=== PATIENT | female | born 2000 | race Caucasian/White ===

== ENCOUNTER → 2020-11-03 00:29 | Outpatient (CLI) | payer BC, SELFPAY ==
[2020-11-03 18:19] LABS: SARS-CoV-2 RNA PCR Negative
== END ==
PROVIDERS: PCP Family Medicine; Visit Provider Internal Medicine Gastroenterology
DX: Z01.812 Encounter for preprocedural laboratory examination (principal); Z20.822 Contact with and (suspected) exposure to COVID-19
CPT/HCPCS: C9803; U0003; U0005

== ENCOUNTER 2020-11-06 01:12 | Day surgery (SDC) | payer BC, SELFPAY ==
[2020-10-26 13:21] VITALS: BMI 45.3
[2020-11-06 10:50] VITALS: BP 145/100; PULSE 94; RESP 18; TEMP 36.4; O2SAT 100
[2020-11-06] MEDS: LACTATED RINGERS 1,000 ML 150 ML IV CONT (11:13)
--- NOTE | 2020-11-06 11:34 | WPDANESEPPF ---
Anes - Initial Pre Proc Eval Procedure: Operation Date: 11/06/20 12:00 Proposed Procedures p Esophagogastroduodenoscopy - Mario Duke MD Date/Time: 11/06/20 11:34 Surgeon: Mario Duke MD Pre Op Diagnosis: Epigastric Pain, GERD Patient Data Age: 20 Gender: F Height: 5 ft 4 in Weight: 122.3 kg Last Vital Signs Temp 36.4 C L 11/06/20 10:50 Pulse 94 11/06/20 10:50 Resp 18 11/06/20 10:50 BP 145/100 H 11/06/20 10:50 Pulse Ox 100 11/06/20 10:50 Allergies Allergy/AdvReac Type Severity Reaction Status Date / Time codeine Allergy Mild Hives,nause Verified 11/06/20 10:49 a Home Medications Medication Instructions Recorded Confirmed Type omeprazole 40 mg PO BID 10/26/20 11/06/20 History Patient hx anesthesia problems: none Family hx anesthesia problems: none PMFSH Past Medical History Medical History (Updated 11/06/20 @ 11:34 by Jordy Perry MD) Epigastric pain Marijuana abuse Nausea Obesity, morbid, BMI 40.0-49.9 Surgical History Surgical History (Updated 11/06/20 @ 11:35 by Jordy Perry MD) History of hip surgery Family History Family History (Updated 10/19/20 @ 10:57 by Hien Ward CMA) Father Bipolar 1 disorder Social History Social History Smoking status: Never smoker Alcohol intake: never Substance use: never Substance use type: does not use Living arrangements: with family Gender identity (if verbalized by the patient): Female Spiritual care concerns: No Anes - Eval Final PreProcedure Day of Procedure 11/06/20 11:34 Patient weight: morbidly obese Heart: regular rate and rhythm Lungs: clear to auscultation Airway: Mallampati scale class II Neurological: alert and oriented Last oral intake: >/= 8 hours ASA classification: III Emergent: no Anesthetic plan: proceed Anesthesia type and monitoring: general GIVS and standard monitoring Informed Consent: The patient's anesthetic plan and its attendant risks and benefits were discussed with the patient/family/POA. Questions were solicited and answers provided to the satisfaction of the patient/family/POA.
--- NOTE | 2020-11-06 12:06 | WPDHPUPDATE1 ---
History and Physical Update Update Date/Time: 11/06/20 12:06 History and Physical has been reviewed, including an updated exam of the patient. There are NO changes in the patient's condition. Risks, benefits, and alternatives have been discussed and questions answered. Patient agrees to proceed with procedure.
[2020-11-06 12:23] VITALS: BP 127/84; PULSE 86; RESP 18; O2SAT 100
[2020-11-06 12:33] VITALS: BP 154/99; PULSE 108; RESP 33; O2SAT 100
[2020-11-06 12:43] VITALS: BP 148/94; PULSE 79; RESP 22; O2SAT 100
== END 2020-11-06 13:05 | disposition home or self-care (01) ==
PROVIDERS: PCP Family Medicine; Visit Provider Internal Medicine Gastroenterology
PROC: 0DJ08ZZ Inspection of Upper Intestinal Tract, Via Natural or Artificial Opening Endoscopic (ICD-10-PCS; CPT 43235; principal; 2020-11-06 12:00)
DX: K21.9 Gastro-esophageal reflux disease without esophagitis (principal); K29.50 Unspecified chronic gastritis without bleeding; R11.0 Nausea; E66.01 Morbid (severe) obesity due to excess calories
CPT/HCPCS: 43239; 88305; J2704; J7120